=== PATIENT | female | born 1990 | race African-American/Black ===

== ENCOUNTER 2017-12-15 17:43 | Outpatient (CLI) | payer OTHER ==
[2017-12-15 18:33] LABS: ADD MAN DIFF? NO
[2017-12-15 18:36] LABS: WHITE BLOOD COUNT 8.2 10^3/ul (4.8-10.8)
[2017-12-15 18:36] LABS: BASOPHILS % 0.2 % (0.0-2.0); EOSINOPHILS # 0.1 10^3/ul (0.0-0.5); EOSINOPHILS % 0.9 % (0.0-7.0); HEMOGLOBIN 11.2 g/dl (12.0-16.0); LYMPHOCYTES # 2.4 10^3/ul (0.8-2.9); LYMPHOCYTES % 28.7 % (15.0-51.0); MEAN CORPUSCULAR HEMOGLOBIN 31.5 pg (29.0-33.0); MEAN CORPUSCULAR HGB CONC 33.9 g/dl (32.0-37.0); MEAN CORPUSCULAR VOLUME 92.7 fl (82.0-101.0); MEAN PLATELET VOLUME 9.3 fl (7.4-10.4); MONOCYTE # 0.7 10^3/ul (0.3-0.9); NEUTROPHILS % 60.8 % (39.0-77.0); PLATELET COUNT 222 10^3/UL (140-415); RED BLOOD COUNT 3.56 10^6/ul (4.20-5.40); RED CELL DISTRIBUTION WIDTH 12.5 % (11.5-14.5)
[2017-12-15 18:43] LABS: ADD UMIC YES; UR ASCORBIC ACID NEGATIVE (NEGATIVE); UR BILIRUBIN (Dip) NEGATIVE (NEGATIVE); UR BLOOD (Dip) NEGATIVE (NEGATIVE); UR CLARITY CLEAR (CLEAR); UR COLOR STRAW (YELLOW); UR GLUCOSE (Dip) 2+ mg/dL (NEGATIVE); UR KETONES (Dip) NEGATIVE (NEGATIVE); UR LEUKOCYTE ESTERASE (Dip) TRACE Leu/ul (NEGATIVE); UR NITRITE (Dip) NEGATIVE (NEGATIVE); UR RBC 0 /HPF (0-5); UR SPECIFIC GRAVITY (Dip) 1.009 (1.003-1.030); UR TOTAL PROTEIN (Dip) NEGATIVE (NEGATIVE); UR UROBILINOGEN (Dip) NEGATIVE (NEGATIVE); UR WBC 4 /HPF (0-5)
[2017-12-15 18:53] LABS: INR 0.88; PT RATIO 0.9
[2017-12-15 18:54] LABS: PARTIAL THROMBOPLASTIN TIME 26.4 Sec (25.0-35.0)
[2017-12-15 19:03] LABS: ALANINE AMINOTRANSFERASE 71 IU/L (13-69); ALBUMIN 3.3 g/dl (3.3-4.9); ALBUMIN/GLOBULIN RATIO 0.97; ALKALINE PHOSPHATASE 87 IU/L (42-121); ANION GAP 11 (8-16); ASPARTATE AMINO TRANSFERASE 46 IU/L (15-46); BILIRUBIN,INDIRECT 0.2 mg/dl (0-1.1); BILIRUBIN,TOTAL 0.2 mg/dl (0.2-1.3); BLOOD UREA NITROGEN 5 mg/dl (7-20); CALCIUM 9.3 mg/dl (8.4-10.2); CARBON DIOXIDE 24 mmol/L (21-31); CHLORIDE 106 mmol/L (97-110); CREATININE 0.45 mg/dl (0.44-1.00); GLUCOSE 81 mg/dl (70-220); POTASSIUM 4.1 mmol/L (3.5-5.1); SODIUM 137 mmol/L (135-144); TOTAL PROTEIN 6.7 g/dl (6.1-8.1); URIC ACID 2.9 mg/dl (3.1-7.9)
[2017-12-15] MEDS: ACETAMINOPHEN 325 MG TAB PO (19:34)
== END 2017-12-15 23:47 | disposition home or self-care (01) ==
LOC: OBT 17:43 → L-D 17:45 → OBT 19:40
DX: O16.3 Unspecified maternal hypertension, third trimester (principal); Z3A.31 31 weeks gestation of pregnancy
CPT/HCPCS: 76818; 80053; 81001; 84560; 85025; 85384; 85610; 85730

== ENCOUNTER 2017-12-16 21:49 | Outpatient (CLI) | payer OTHER ==
[2017-12-16 22:15] LABS: COLLECTION PERIOD 24 hrs
[2017-12-16 22:48] LABS: ADD MAN DIFF? NO
[2017-12-16 22:50] LABS: BASOPHILS % 0.2 % (0.0-2.0); EOSINOPHILS # 0.1 10^3/ul (0.0-0.5); EOSINOPHILS % 1.1 % (0.0-7.0); HEMATOCRIT 32.6 % (37.0-47.0); LYMPHOCYTES # 2.3 10^3/ul (0.8-2.9); LYMPHOCYTES % 25.9 % (15.0-51.0); MEAN CORPUSCULAR HEMOGLOBIN 31.5 pg (29.0-33.0); MEAN CORPUSCULAR HGB CONC 33.7 g/dl (32.0-37.0); MEAN CORPUSCULAR VOLUME 93.4 fl (82.0-101.0); MEAN PLATELET VOLUME 8.9 fl (7.4-10.4); MONOCYTE # 0.5 10^3/ul (0.3-0.9); MONOCYTES % 5.7 % (0.0-11.0); NEUTROPHILS % 66.8 % (39.0-77.0); PLATELET COUNT 221 10^3/UL (140-415); RED BLOOD COUNT 3.49 10^6/ul (4.20-5.40); RED CELL DISTRIBUTION WIDTH 12.3 % (11.5-14.5)
[2017-12-16 23:13] LABS: ALANINE AMINOTRANSFERASE 68 IU/L (13-69); ALBUMIN 3.3 g/dl (3.3-4.9); ALKALINE PHOSPHATASE 82 IU/L (42-121); ANION GAP 10 (8-16); ASPARTATE AMINO TRANSFERASE 47 IU/L (15-46); BILIRUBIN,INDIRECT 0.2 mg/dl (0-1.1); BILIRUBIN,TOTAL 0.2 mg/dl (0.2-1.3); BLOOD UREA NITROGEN 6 mg/dl (7-20); CALCIUM 9.5 mg/dl (8.4-10.2); CARBON DIOXIDE 27 mmol/L (21-31); CHLORIDE 104 mmol/L (97-110); CREATININE 0.59 mg/dl (0.44-1.00); GLUCOSE 110 mg/dl (70-220); POTASSIUM 3.5 mmol/L (3.5-5.1); SODIUM 137 mmol/L (135-144); TOTAL PROTEIN 6.6 g/dl (6.1-8.1); URIC ACID 3.8 mg/dl (3.1-7.9)
[2017-12-16 23:13] LABS: CREATININE 0.58 mg/dl (0.44-1.00)
[2017-12-16 23:19] LABS: COLLECTION PERIOD 24 hrs; CREATININE CLEARANCE 206.8 mls/min (84.0-162.0); SCRET 0.45 mg/dl (0.44-1.00); VOLUME 2200 ml/24hrs; VOLUME 2200 mls
== END 2017-12-16 22:47 | disposition home or self-care (01) ==
LOC: OBT 21:49 → L-D 21:49
DX: O13.3 Gestational [pregnancy-induced] hypertension without significant proteinuria, third trimester (principal); O99.113 Other diseases of the blood and blood-forming organs and certain disorders involving the immune mechanism complicating pregnancy, third trimester; D68.61 Antiphospholipid syndrome; Z3A.31 31 weeks gestation of pregnancy
CPT/HCPCS: 36415; 80053; 82565; 82575; 84156; 84560; 85025

== ENCOUNTER 2018-01-25 13:13 | Inpatient (IN) | payer OTHER ==
[2018-01-25] MEDS ORDERED: METHYLERGONOVINE 0.2 MG INJ IM ×2 (14:30→23:00)
[2018-01-25] MEDS ORDERED: MISOPROSTOL 200 MCG TAB PR ×2 (14:30→23:00)
[2018-01-25] MEDS ORDERED: CARBOPROST 250 MCG INJ IM ×2 (14:30→23:00)
[2018-01-25] MEDS ORDERED: OXYTOCIN 30 UNITS/LR 500 ML IV ×3 (14:30→23:00)
[2018-01-25] MEDS: LACTATED RINGER'S 1,000 ML IV* ×2 (14:52→15:03)
[2018-01-25] MEDS: CLINDAMYCIN 900 MG/D5W (PMX) 50 ML IVPB (14:55)
[2018-01-25 15:02] LABS: ADD MAN DIFF? NO
[2018-01-25 15:04] LABS: BASOPHILS % 0.2 % (0.0-2.0); EOSINOPHILS % 0.3 % (0.0-7.0); HEMATOCRIT 32.5 % (37.0-47.0); HEMOGLOBIN 10.8 g/dl (12.0-16.0); LYMPHOCYTES # 2.2 10^3/ul (0.8-2.9); LYMPHOCYTES % 23.7 % (15.0-51.0); MEAN CORPUSCULAR HEMOGLOBIN 31.1 pg (29.0-33.0); MEAN CORPUSCULAR HGB CONC 33.2 g/dl (32.0-37.0); MEAN CORPUSCULAR VOLUME 93.7 fl (82.0-101.0); MEAN PLATELET VOLUME 9.5 fl (7.4-10.4); MONOCYTE # 0.5 10^3/ul (0.3-0.9); MONOCYTES % 5.5 % (0.0-11.0); NEUTROPHIL # 6.4 10^3/ul (1.6-7.5); NEUTROPHILS % 69.9 % (39.0-77.0); PLATELET COUNT 228 10^3/UL (140-415); RED BLOOD COUNT 3.47 10^6/ul (4.20-5.40); RED CELL DISTRIBUTION WIDTH 12.5 % (11.5-14.5)
[2018-01-25 15:04] LABS: WHITE BLOOD COUNT 9.1 10^3/ul (4.8-10.8)
[2018-01-25 15:24] LABS: INR 0.89; PROTIME 12.1 Sec (11.9-14.9); PT RATIO 0.9
[2018-01-25 15:25] LABS: PARTIAL THROMBOPLASTIN TIME 28.6 Sec (23.0-35.0)
[2018-01-25 16:14] LABS: HEPATITIS B SURFACE ANTIGEN NEGATIVE (NEGATIVE)
[2018-01-25] MEDS: CEFAZOLIN 2 GM/50 ML (PMX) 50 ML IVPB (16:21)
[2018-01-25 16:47] LABS: RAPID PLASMA REAGIN NONREACTIVE (NR)
[2018-01-25] MEDS: CITRIC ACID/NA CITRATE 30 ML CUP PO (17:30)
[2018-01-25] MEDS: ONDANSETRON 4 MG INJ IV (17:30)
[2018-01-25] MEDS ORDERED: FENTAnyl 50 MCG/ML VIAL (18:09)
[2018-01-25] MEDS ORDERED: OXYTOCIN 10 UNIT INJ (18:09)
[2018-01-25] MEDS ORDERED: PHENYLephrine (100 MCG/ML) 5ML SYG (18:09)
[2018-01-25] MEDS ORDERED: METOCLOPRAMIDE 10 MG INJ (18:09)
[2018-01-25] MEDS ORDERED: BUPIVACAINE 0.75%/DEXT (SPINAL) 2 ML INJ (18:09)
[2018-01-25] MEDS ORDERED: morphine SULFATE/PF (10 MG/10 ML) INJ (18:09)
[2018-01-25] MEDS: TRIAMCINOLONE ACET SUSP 200 MG INJ IM (18:30)
[2018-01-25] MEDS: OXYTOCIN 30 UNITS/LR 500 ML IV (19:43)
[2018-01-25] MEDS ORDERED: DIPHENHYDRAMINE 50 MG INJ IV ×2 (20:00)
[2018-01-25] MEDS ORDERED: FENTAnyl 50 MCG/ML VIAL IV ×3 (20:00)
[2018-01-25] MEDS ORDERED: IPRATROPIUM (NEB) 0.5 MG/2.5 ML AMP HHN (20:00)
[2018-01-25] MEDS ORDERED: morphine 2 MG INJ IV (20:00)
[2018-01-25] MEDS ORDERED: LABETALOL HCL 20MG INJ IV (20:00)
[2018-01-25] MEDS ORDERED: MIDAZOLAM 1 MG/ML 2 ML INJ IV (20:00)
[2018-01-25] MEDS ORDERED: TRIMETHOBENZAMIDE 100 MG/ML VIAL IM ×2 (20:00)
[2018-01-25] MEDS ORDERED: NALOXONE (0.4 MG/ML) INJ IV (20:00)
[2018-01-25] MEDS ORDERED: OXYCODONE/ACETAMINOPHEN (5/325) TAB PO ×3 (20:00→23:00)
[2018-01-25] MEDS ORDERED: NALBUPHINE HCL (10 MG/1 ML) INJ IV (20:00)
[2018-01-25] MEDS ORDERED: hydrALAzine 20 MG INJ IV (20:00)
[2018-01-25] MEDS ORDERED: EPHEDrine SULFATE 50 MG/5 ML SYG IV (20:00)
[2018-01-25] MEDS ORDERED: HYDROmorphONE 1 MG/5 ML IV SYRINGE IV ×3 (20:00)
[2018-01-25] MEDS ORDERED: ALBUTEROL 0.083% (NEB) 2.5 MG/3 ML AMP HHN (20:00)
[2018-01-25] MEDS ORDERED: MEPERIDINE 25 MG INJ IV (20:00)
[2018-01-25] MEDS ORDERED: ONDANSETRON 4 MG INJ IV ×2 (20:00)
[2018-01-25] MEDS: AZITHROMYCIN 500MG/NS (PMX) 250 ML IVPB (20:17)
[2018-01-25] MEDS ORDERED: NA PHOSPHATE/BIPHOS 133 ML ENEMA PR (23:00)
[2018-01-25] MEDS ORDERED: LANOLIN 7 GM TUBE TOP (23:00)
[2018-01-26] MEDS: LACTATED RINGER'S 1,000 ML IV ×4 (00:33→22:31)
[2018-01-26] MEDS: CEFAZOLIN 2 GM/50 ML (PMX) 50 ML IVPB ×3 (01:22→17:23)
[2018-01-26] MEDS: CLINDAMYCIN 300 MG CAP PO ×5 (06:00→23:30)
[2018-01-26 08:31] LABS: ADD MAN DIFF? NO
[2018-01-26 08:35] LABS: BASOPHILS % 0.1 % (0.0-2.0); HEMATOCRIT 23.9 % (37.0-47.0); HEMOGLOBIN 8.1 g/dl (12.0-16.0); LYMPHOCYTES # 1.9 10^3/ul (0.8-2.9); LYMPHOCYTES % 17.3 % (15.0-51.0); MEAN CORPUSCULAR HEMOGLOBIN 32.3 pg (29.0-33.0); MEAN CORPUSCULAR HGB CONC 33.9 g/dl (32.0-37.0); MEAN CORPUSCULAR VOLUME 95.2 fl (82.0-101.0); MEAN PLATELET VOLUME 9.9 fl (7.4-10.4); MONOCYTE # 0.6 10^3/ul (0.3-0.9); MONOCYTES % 5.3 % (0.0-11.0); NEUTROPHIL # 8.5 10^3/ul (1.6-7.5); PLATELET COUNT 183 10^3/UL (140-415); RED BLOOD COUNT 2.51 10^6/ul (4.20-5.40); RED CELL DISTRIBUTION WIDTH 12.4 % (11.5-14.5)
[2018-01-26] MEDS: morphine 2 MG INJ IV (15:26)
[2018-01-26] MEDS: KETOROLAC 30 MG INJ IV (17:23)
[2018-01-26] MEDS: IBUPROFEN 800 MG TAB PO (21:25)
[2018-01-26] MEDS: SENNA/DOCUSATE NA (8.6MG/50MG) TAB PO (21:25)
[2018-01-26] MEDS: HYDROCODONE/APAP (5/325) TAB PO (23:31)
[2018-01-27] MEDS ORDERED: CEFAZOLIN 2 GM/50 ML (PMX) 50 ML IVPB (01:00)
[2018-01-27] MEDS: CLINDAMYCIN 300 MG CAP PO ×4 (06:04→23:34)
[2018-01-27] MEDS: IBUPROFEN 800 MG TAB PO ×3 (06:04→21:33)
[2018-01-27] MEDS: LACTATED RINGER'S 1,000 ML IV ×3 (06:31→22:31)
[2018-01-27] MEDS: SENNA/DOCUSATE NA (8.6MG/50MG) TAB PO ×2 (09:04→21:33)
[2018-01-27] MEDS: HYDROCODONE/APAP (5/325) TAB PO ×3 (09:05→23:34)
[2018-01-28] MEDS: CLINDAMYCIN 300 MG CAP PO (05:03)
[2018-01-28] MEDS: IBUPROFEN 800 MG TAB PO (05:04)
[2018-01-28] MEDS: LACTATED RINGER'S 1,000 ML IV (06:31)
[2018-01-28] MEDS: DIPHTH/TET/ACEL PERTUSS (ADULT) 0.5 ML VIAL IM* (07:18)
[2018-01-28] MEDS: MEASLES,MUMPS,RUBELLA VACCINE INJ SC* (07:19)
[2018-01-28] MEDS: SENNA/DOCUSATE NA (8.6MG/50MG) TAB PO (08:57)
== END 2018-01-28 12:10 | disposition home or self-care (01) | DRG 788 ==
LOC: L-D 13:13 → PP1 22:17
PROVIDERS: Obstetrics & Gynecology
PROC: 10D00Z1 Extraction of Products of Conception, Low, Open Approach (ICD-10-PCS; principal; 2018-01-25 15:30)
DX: O34.211 Maternal care for low transverse scar from previous cesarean delivery (principal); Z3A.37 37 weeks gestation of pregnancy; Z37.0 Single live birth
CPT/HCPCS: 85025; 85610; 85730; 86592; 86850; 86870; 86900; 86901; 87340; 90686; 99464